=== PATIENT | male | born 1935 | race Caucasian/White ===

== ENCOUNTER 2018-08-14 08:37 | Inpatient (IN) | payer MEDICARE ==
[2018-08-09 16:51] LABS: BASOPHILS % (AUTO) 0.3 % (0-1); EOSINOPHILS # (AUTO) 0.1 X10'3 (0-0.9); EOSINOPHILS % (AUTO) 1.2 % (0-6); LYMPHOCYTES # (AUTO) 1.5 X10'3 (1.1-4.8); LYMPHOCYTES % (AUTO) 23.2 % (21-51); MEAN CORPUSCULAR HEMOGLOBIN 32.9 PG (27.0-31.0); MEAN CORPUSCULAR HGB CONC 33.7 % (33.0-36.5); MEAN CORPUSCULAR VOLUME 97.6 FL (78-98); MEAN PLATELET VOLUME 8.4 FL (7.4-10.4); MONOCYTES # (AUTO) 0.6 X10'3 (0-0.9); MONOCYTES % (AUTO) 9.5 % (2-12); NEUTROPHILS # (AUTO) 4.3 X10'3 (1.8-7.7); NEUTROPHILS % (AUTO) 65.8 % (42-75); PRE OP HEMATOCRIT 39.1 % (42.0-52.0); PRE OP HEMOGLOBIN 13.2 g/dL (14.0-17.9); PRE OP PLATELET COUNT 233 X10'3 (140-440)
[2018-08-09 17:05] LABS: ALBUMIN 3.8 G/DL (3.4-5.0); ALBUMIN/GLOBULIN RATIO 1.2 (1.1-1.5); ALKALINE PHOSPHATASE 75 IU/L (46-116); BLOOD UREA NITROGEN 16 MG/DL (7-18); CALCIUM 8.8 MG/DL (8.5-10.1); CHLORIDE 104 MMOL/L (99-107); CREATININE 0.84 MG/DL (0.60-1.10); PRE OP ALT 25 U/L (30-65); PRE OP ANION GAP 10 (8-16); PRE OP AST 15 U/L (10-37); PRE OP BILIRUB, TOTAL 0.5 MG/DL (0.0-1.0); PRE OP GLUCOSE 103 MG/DL (70-104); PRE OP POTASSIUM 3.6 MMOL/L (3.4-5.1); PRE OP SODIUM 143 MMOL/L (135-145); TOTAL CARBON DIOXIDE 29.4 MMOL/L (24-32); TOTAL PROTEIN 7.1 G/DL (6.4-8.2); eGFR 88 ML/MIN
[2018-08-14] VITALS (28 sets, daily range): BP systolic 118–145; BP diastolic 52–88
[~2018-08-14] VITALS: Ht 185.4 cm; Wt 84.3 kg
[~2018-08-14 08:37] MED LIST: LOSA25TA96 PO; VANCOMYCIN INJ 1000 MG in NORMAL SALINE 250ml IV.SOLN IV ONE; cefazolin/dext.iso 2gm/100 ML IV ONE; famotidine 20mg tablet PO ONE; meperidine/PF 25mg/ml syringe IV PRN; morphine 4 MG/ML inj SYRINge IV PRN; ondansetron/PF 4mg/2ml inj IV PRN; proCHLORperazine 10 MG/2 ml inj IV PRN; ringers solution, lacted 1,000 ML IV SCH; tranexamic acid inj. 900 MG in normal saline 100ml IV soln 100 ML IV ONE
[2018-08-14] MEDS ORDERED: ROPIVAcaine 0.5% (5mg/ml) 30ml vial ONE (10:28)
[2018-08-14] MEDS ORDERED: ceFAZolin 1000mg inj ONE (10:28)
[2018-08-14] MEDS ORDERED: ketorolac trometh. 30mg/ml inj. ONE (10:28)
[2018-08-14] MEDS ORDERED: MIDAZolam 5mg/5ml vial ONE (11:21)
[2018-08-14] MEDS ORDERED: fentaNYL/PF 50MCG/1 ML 2ML syringe ONE (11:21)
[2018-08-14] MEDS ORDERED: LIDOcaine 1%/PF 5ML 10 MG/ML VIAL ONE (11:44)
[2018-08-14] MEDS ORDERED: desflurane 240ml liquid inh. IH ONE (11:44)
[2018-08-14] MEDS ORDERED: ROPIVACAINE HCL IJ SCH (13:21)
[2018-08-14] MEDS ORDERED: PAIN PUMP IJ SCH (13:21)
[2018-08-14] MEDS ORDERED: propofol inj 20 ML IV ONE (14:39)
[2018-08-14] MEDS ORDERED: dexamethasone sod phosphate 4mg/ml inj. ONE (14:40)
[2018-08-14] MEDS ORDERED: ondansetron/PF 4mg/2ml inj ONE (14:40)
[2018-08-14] MEDS ORDERED: bisacodyl 10mg suppository rectal RC PRN (14:55)
[2018-08-14] MEDS ORDERED: HYDROmorphone 1 mg/ml syringe IV PRN (14:55)
[2018-08-14] MEDS ORDERED: acetaminophen 325mg tablet PO PRN (14:55)
[2018-08-14] MEDS ORDERED: magnesium hydroxide 30ml (MOM) UD suspension PO PRN (14:55)
[2018-08-14] MEDS ORDERED: ondansetron/PF 4mg/2ml inj IV PRN (14:55)
[2018-08-14] MEDS ORDERED: HYDROmorphone inj. 0.5 MG/0.5 ML DISP.SYRIN IV PRN (14:55)
[2018-08-14] MEDS ORDERED: oxyCODONE IR 5mg (immed. release) tablet PO PRN ×2 (14:55)
[2018-08-14] MEDS ORDERED: diphenhydrAMINE 25mg capsule PO PRN ×2 (14:55)
--- NOTE | 2018-08-14 14:55 | NUR ---
Received from OR via BED, accompanied by Anesthesiologist SANTOS and report given by Anesthesiolgist. PT DROWSY, OXYGENATING WELL ON 10 LPM O2 VIA MASK, NO RESP DISTRESS NOTED. DENIES NAUSEA OR PAIN AT THIS TIME, HAD LISB. L SHOULDER DSG WITH SHOULDER WRAP, POWDER PACK IN PLACE. L ISB CATHETER IN PLACE. LUE IN SLING, ELBOW PADDED WITH PILLOW. RADIAL PULSES PALPABLE. SCDS ON, VSS.
--- NOTE | 2018-08-14 17:55 | NUR ---
PT WAS KEPT IN PACU FOR 3 HOURS DUE TO SEVERE CONFUSION/AMNESIA AFTER SURGERY. ANETHESIOLOGIST, DR BLANCA IS AWARE. OBSERVED PT FOR 3 HOURS, STARTING TO CLEAR MENTALLY. PT NOW KNOWS WHERE HE IS, WHAT WAS DONE AND WHY HIS LEFT HAND IS NUMB. ON CUE BALL ATTACHED TO LISB CATHETER, TRA 6 ML/HR. NO C/O PAIN. VITALS ARE STABLE, TOLERATING PO FLUIDS WELL. FLOOR RN AWARE OF THE ABOVE. WILL STAY WITH PT UNTIL AFTER CHANGE OF SHIFT THE TABS ALARM WILL BE PLACED FOR PT SAFETY. REPORT WAS GIVEN TO RECEIVING RN, TRANSFERRED TO ORTHO FLOOR WITH 2 BAGS OF BELONGINGS, STABLE CONDITION.
[2018-08-14] MEDS ORDERED: tranexamic acid inj. 900 MG in normal saline 100ml IV soln 100 ML IV ONE (18:00)
[2018-08-14] MEDS: ceFAZolin 1GM/D5W- ADD-VANTAGE 50 ML IV SCH (18:02)
[2018-08-14] MEDS: potassium cl 20mEq in 1/2 NS 1,000 ML IV SCH ×2 (18:02→22:55)
--- NOTE | 2018-08-14 18:31 | NUR ---
Problems reprioritized. Patient report given, questions answered & plan of care reviewed with Christi QUICK.
--- NOTE | 2018-08-14 18:42 | NUR ---
Report rec'd from YNES Mcfarland.
[2018-08-14] MEDS: acetaminophen 325mg tablet PO SCH (19:33)
[2018-08-14] MEDS: ketorolac tromethamine 15mg/ml inj. IV SCH (19:33)
[2018-08-14] MEDS ORDERED: vancomycin/NS 1 GM ADD-VANTAGE 250 ML IV SCH (20:00)
[2018-08-14] MEDS: gabapentin 300mg capsule PO SCH (20:45)
[2018-08-14] MEDS ORDERED: sennosides 8.6mg tablet PO SCH (21:00)
--- NOTE | 2018-08-14 21:49 | NUR ---
Dr. Brooks making his rounds and asked if pt had any pain. Pt said still numb, he told me to turn On-Q down to 2. So I turned it down to 2.
[2018-08-15] MEDS: ceFAZolin 1GM/D5W- ADD-VANTAGE 50 ML IV SCH (00:45)
[2018-08-15] MEDS: acetaminophen 325mg tablet PO SCH ×2 (03:22→07:25)
[2018-08-15] MEDS: ketorolac tromethamine 15mg/ml inj. IV SCH ×2 (03:22→07:28)
[2018-08-15 06:00] VITALS: BP 118/60
[2018-08-15] MEDS: potassium cl 20mEq in 1/2 NS 1,000 ML IV SCH (06:15)
--- NOTE | 2018-08-15 06:16 | NUR ---
received report from patricia lebron
--- NOTE | 2018-08-15 06:41 | NUR ---
REPORT GIVEN TO YNES BUSH.
[2018-08-15 06:47] LABS: ANION GAP 8 (8-16); CHLORIDE 105 MMOL/L (99-107); POTASSIUM 3.9 MMOL/L (3.5-5.1); SODIUM 139 MMOL/L (135-145); TOTAL CARBON DIOXIDE 25.7 MMOL/L (24-32)
[2018-08-15 06:48] LABS: BASOPHILS % (AUTO) 0.2 % (0-1); EOSINOPHILS % (AUTO) 0 % (0-6); HEMATOCRIT 34.2 % (42.0-52.0); HEMOGLOBIN 11.6 g/dl (14.0-17.9); LYMPHOCYTES % (AUTO) 8.7 % (21-51); MEAN CORPUSCULAR HGB CONC 34.1 % (33.0-36.5); MEAN PLATELET VOLUME 8.2 FL (7.4-10.4); MONOCYTES # (AUTO) 1.3 X10'3 (0-0.9); MONOCYTES % (AUTO) 11.6 % (2-12); NEUTROPHILS % (AUTO) 79.5 % (42-75); PLATELET COUNT 203 X10'3 (140-440); RED BLOOD COUNT 3.53 X10'6 (4.70-6.10); RED CELL DISTRIBUTION WIDTH 12.9 % (11.5-14.5); WHITE BLOOD COUNT 11.3 X10'3 (4.5-11.0)
[2018-08-15] MEDS ORDERED: aspirin 325mg tablet ONE (07:20)
[2018-08-15] MEDS: gabapentin 300mg capsule PO SCH (07:25)
--- NOTE | 2018-08-15 07:40 | NUR ---
admin pts 325 mg aspirn this morning, [employer] not letting nursing staff to look up provider to save in [facility], checked med prior to admin
[2018-08-15] MEDS ORDERED: losartan 25mg tablet PO SCH (08:00)
[2018-08-15] MEDS ORDERED: aspirin 325mg tablet PO SCH (08:30)
[2018-08-15 10:00] VITALS: BP 119/64
--- NOTE | 2018-08-15 13:13 | NUR ---
pt d/c with instructions, understanding of instructions and w/all belongings in wheelchair accompanied by fam member to go to private vehicle to go home and f/u w/surgeon
[2018-08-15] MEDS ORDERED: celeCOXIB 100mg capsule PO SCH (20:00)
[2018-08-16] MEDS ORDERED: acetaminophen 325mg tablet PO PRN (14:55)
== END 2018-08-15 13:13 | disposition home or self-care (01) | DRG 483 ==
LOC: PAS IN 08:37 → EDSTATUS 12:15 → ORTHO 4S 18:04
PROVIDERS: ADMIT Orthopaedic Surgery; ATTEND Orthopaedic Surgery
PROC: 0LS40ZZ Reposition Left Upper Arm Tendon, Open Approach (ICD-10-PCS; 2018-08-14)
PROC: 3E0T3BZ Introduction of Anesthetic Agent into Peripheral Nerves and Plexi, Percutaneous Approach (ICD-10-PCS; 2018-08-14)
PROC: 0RRK00Z Replacement of Left Shoulder Joint with Reverse Ball and Socket Synthetic Substitute, Open Approach (ICD-10-PCS; principal; 2018-08-14 11:44)
DX: M19.012 Primary osteoarthritis, left shoulder (principal); D62 Acute posthemorrhagic anemia; M25.512 Pain in left shoulder; G62.9 Polyneuropathy, unspecified; M75.22 Bicipital tendinitis, left shoulder; I10 Essential (primary) hypertension; M65.812 Other synovitis and tenosynovitis, left shoulder; M75.122 Complete rotator cuff tear or rupture of left shoulder, not specified as traumatic; Z72.89 Other problems related to lifestyle; Z79.899 Other long term (current) drug therapy; Z85.46 Personal history of malignant neoplasm of prostate
CPT/HCPCS: 36415; 80051; 80053; 85025; 87070; 93005; 97110; 97161; 97530; A6258; A7000; G0378; J0690; J1100; J1885; J2001; J2250; J2405; J2704; J2795; J3010; J3370; J7030; J7040; J7120; Q0163

== ENCOUNTER 2024-08-16 09:43 | Outpatient (CLI) | payer MEDICARE ==
[~2024-08-16 09:43] MED LIST changes: +LOSA-415 PO; -LOSA25TA96 PO; -VANCOMYCIN INJ 1000 MG in NORMAL SALINE 250ml IV.SOLN IV ONE; -cefazolin/dext.iso 2gm/100 ML IV ONE; -famotidine 20mg tablet PO ONE; -meperidine/PF 25mg/ml syringe IV PRN; -morphine 4 MG/ML inj SYRINge IV PRN; -ondansetron/PF 4mg/2ml inj IV PRN; -proCHLORperazine 10 MG/2 ml inj IV PRN; -ringers solution, lacted 1,000 ML IV SCH; -tranexamic acid inj. 900 MG in normal saline 100ml IV soln 100 ML IV ONE
== END 2024-08-16 23:59 | disposition home or self-care (01) ==
LOC: RAD 09:43
PROVIDERS: ATTEND Otolaryngology
DX: R13.14 Dysphagia, pharyngoesophageal phase (principal); K21.9 Gastro-esophageal reflux disease without esophagitis; Z79.82 Long term (current) use of aspirin; Z85.028 Personal history of other malignant neoplasm of stomach
CPT/HCPCS: 74230

== ENCOUNTER 2024-10-22 10:04 | Day surgery (SDC) | payer MEDICARE ==
[2024-10-18 08:25] LABS: BASOPHILS % (AUTO) 0.4 % (0-1); EOSINOPHILS # (AUTO) 0.1 X10'3 (0-0.9); EOSINOPHILS % (AUTO) 0.9 % (0-6); HEMATOCRIT 37.4 % (42.0-52.0); HEMOGLOBIN 12.6 g/dl (14.0-17.9); LYMPHOCYTES # (AUTO) 0.6 X10'3 (1.1-4.8); LYMPHOCYTES % (AUTO) 9.9 % (21-51); MEAN CORPUSCULAR HEMOGLOBIN 31.8 PG (27.0-31.0); MEAN CORPUSCULAR HGB CONC 33.6 g/dL (33.0-36.5); MEAN CORPUSCULAR VOLUME 94.6 FL (78-98); MEAN PLATELET VOLUME 6.9 FL (7.4-10.4); MONOCYTES # (AUTO) 0.7 X10'3 (0-0.9); MONOCYTES % (AUTO) 12.3 % (2-12); NEUTROPHILS # (AUTO) 4.4 X10'3 (1.8-7.7); NEUTROPHILS % (AUTO) 76.5 % (42-75); PLATELET COUNT 316 X10'3 (140-440); RED BLOOD COUNT 3.95 X10'6 (4.70-6.10); RED CELL DISTRIBUTION WIDTH 14.1 % (11.5-14.5); WHITE BLOOD COUNT 5.8 X10'3 (4.5-11.0)
[2024-10-18 08:36] LABS: APTT 33 SECONDS (22-32); INR 1.1 INR; PROTHROMBIN TIME 11.9 SECONDS (9.0-12.0)
[2024-10-18 08:40] LABS: ALBUMIN 3.2 G/DL (3.4-5.0); ANION GAP 6 (8-16); BLOOD UREA NITROGEN 14 MG/DL (7-18); BUN/CREATININE RATIO 23.3 (10.0-20.0); CHLORIDE 97 MMOL/L (99-107); CHOLESTEROL 114 MG/DL (0-200); GLUCOSE 100 MG/DL (70-104); HDL CHOLESTEROL 58 MG/DL (35-60); LDL CHOLESTEROL 50 MG/DL (50-100); POTASSIUM 3.9 MMOL/L (3.5-5.1); SODIUM 129 MMOL/L (135-145); TOTAL CARBON DIOXIDE 26.5 MMOL/L (24-32); TRIGLYCERIDES 25 MG/DL (20-135); eGFR > 90 ML/MIN
[~2024-10-22] VITALS: Ht 185.4 cm; Wt 76.7 kg
[2024-10-22] VITALS (16 sets, daily range): BP systolic 110–163; BP diastolic 52–79; PULSE 49–71; RESP 10–20; TEMP 97.7; O2SAT 94–100
[~2024-10-22 10:04] MED LIST changes: +APIX2.5T PO; +CABE0.5T2; -LOSA-415 PO
[2024-10-22] MEDS ORDERED: METO25TA6 PO (10:58)
[2024-10-22] MEDS ORDERED: FLEC50TA28 (10:58)
[2024-10-22] MEDS ORDERED: AMLO5TAB16 (10:59)
[2024-10-22] MEDS ORDERED: ASCO500C17 PO (11:00)
[2024-10-22] MEDS ORDERED: CALC-723 PO (11:01)
[2024-10-22] MEDS ORDERED: APIX2.5T PO (11:04)
[2024-10-22] MEDS: fentaNYL/PF 50MCG/1 ML 2ML syringe IV ONE (12:54)
[2024-10-22] MEDS: MIDAZolam 1mg/ml 10ml vial IV ONE (12:54)
[2024-10-22] MEDS: normal saline 1000ml 1,000 ML IV SCH (12:54)
== END 2024-10-22 14:30 | disposition home or self-care (01) ==
LOC: SSTAY O 10:04
PROVIDERS: ATTEND Student in an Organized Health Care Education/Training Program
DX: I48.91 Unspecified atrial fibrillation (principal); M10.9 Gout, unspecified; I10 Essential (primary) hypertension; Z79.899 Other long term (current) drug therapy; Z98.890 Other specified postprocedural states; Z79.82 Long term (current) use of aspirin; I35.0 Nonrheumatic aortic (valve) stenosis
CPT/HCPCS: 36415; 80048; 80061; 85025; 85610; 85730; 92960; A4620; J2250; J3010; J7030